=== PATIENT | male | born 1940 | race Caucasian/White ===

== ENCOUNTER → 2019-06-14 10:47 | Outpatient (BNVA) | payer MEDICARE, MEDICAID, SELFPAY | PROVIDERS: Family Provider Nurse Practitioner; PCP Nurse Practitioner; Visit Provider Nurse Practitioner | DX: I10 Essential (primary) hypertension (principal); E78.5 Hyperlipidemia, unspecified; E55.9 Vitamin D deficiency, unspecified; Z86.73 Personal history of transient ischemic attack (TIA), and cerebral infarction without residual deficits; K21.9 Gastro-esophageal reflux disease without esophagitis; J43.9 Emphysema, unspecified; R39.11 Hesitancy of micturition | CPT/HCPCS: 80053; 80061; 81003; 82306 ==

== ENCOUNTER → 2019-07-11 11:10 | Outpatient (BNVA) | payer MEDICARE, MEDICAID, SELFPAY | PROVIDERS: Family Provider Nurse Practitioner; PCP Nurse Practitioner; Visit Provider Nurse Practitioner | DX: E87.5 Hyperkalemia (principal) | CPT/HCPCS: 80053 ==

== ENCOUNTER → 2020-03-05 10:22 | Outpatient (BNVA) | payer MEDICARE, MEDICAID, SELFPAY | PROVIDERS: Family Provider Nurse Practitioner; PCP Nurse Practitioner; Visit Provider Nurse Practitioner | DX: M25.512 Pain in left shoulder (principal); I10 Essential (primary) hypertension; E78.2 Mixed hyperlipidemia; E55.9 Vitamin D deficiency, unspecified; J43.9 Emphysema, unspecified | CPT/HCPCS: 73030; 80053; 80061; 84443; 85025 ==

== ENCOUNTER → 2020-11-16 08:32 | Outpatient (BNVA) | payer MEDICARE, MEDICAID, SELFPAY | PROVIDERS: Family Provider Nurse Practitioner; PCP Nurse Practitioner; Visit Provider Nurse Practitioner | DX: I10 Essential (primary) hypertension (principal); J43.9 Emphysema, unspecified; Z86.73 Personal history of transient ischemic attack (TIA), and cerebral infarction without residual deficits; K21.9 Gastro-esophageal reflux disease without esophagitis; E78.2 Mixed hyperlipidemia; R39.11 Hesitancy of micturition; L25.9 Unspecified contact dermatitis, unspecified cause | CPT/HCPCS: 80053; 80061; 85025 ==

== ENCOUNTER → 2021-02-04 15:35 | Outpatient (BNVA) | payer MEDICARE, MEDICAID, SELFPAY | PROVIDERS: Family Provider Nurse Practitioner; PCP Nurse Practitioner; Visit Provider Nurse Practitioner | DX: J43.9 Emphysema, unspecified (principal); I10 Essential (primary) hypertension; K21.9 Gastro-esophageal reflux disease without esophagitis; E78.2 Mixed hyperlipidemia; R39.11 Hesitancy of micturition; K59.01 Slow transit constipation; Z86.73 Personal history of transient ischemic attack (TIA), and cerebral infarction without residual deficits | CPT/HCPCS: 74018 ==

== ENCOUNTER → 2021-05-16 16:12 | Outpatient (BNVA) | payer MEDICARE, MEDICAID, SELFPAY | PROVIDERS: Family Provider Nurse Practitioner; PCP Nurse Practitioner; Visit Provider Nurse Practitioner | DX: I10 Essential (primary) hypertension (principal); M54.50 Low back pain, unspecified; Z86.73 Personal history of transient ischemic attack (TIA), and cerebral infarction without residual deficits; K21.9 Gastro-esophageal reflux disease without esophagitis; J43.9 Emphysema, unspecified; K59.01 Slow transit constipation; E78.2 Mixed hyperlipidemia | CPT/HCPCS: 74018; 80053; 80061; 81000; 85025 ==

== ENCOUNTER → 2021-10-09 11:23 | Outpatient (BNVA) | payer MEDICARE, MEDICAID, SELFPAY | PROVIDERS: Family Provider Nurse Practitioner; PCP Nurse Practitioner; Visit Provider Nurse Practitioner | DX: E55.9 Vitamin D deficiency, unspecified (principal); I10 Essential (primary) hypertension | CPT/HCPCS: 80053; 80061; 82306; 82607; 84443 ==

== ENCOUNTER 2021-10-10 06:59 | Outpatient (CLI) | payer MEDICARE, MEDICAID, SELFPAY ==
--- NOTE | 2021-10-10 07:14 | XRR_ITS ---
PROCEDURE INFORMATION: Exam: XR Chest Exam date and time: 10/10/2021 7:27 AM Age: 80 years old Clinical indication: Pain and condition or disease; Lung condition and disease; Emphysema; Type not specified; Right-sided; Patient HX: Right side flank pain and chest wall pain, feels like a balloon is inflated in this area TECHNIQUE: Imaging protocol: XR of the chest. Views: 2 views. Total images: 2 COMPARISON: No relevant prior studies available. FINDINGS: Lungs: Unremarkable. No consolidation. Pleural spaces: Unremarkable. No pleural effusion. No pneumothorax. Heart/Mediastinum: A large hiatal hernia is present. Bones/joints: Unremarkable. XR/XR chest 2V* [id number] IMPRESSION: 1. A large hiatal hernia is present. 2. No acute cardiopulmonary process.
--- NOTE | 2021-10-11 08:30 | US_ITS ---
WS: [id number] Complete ABDOMINAL ULTRASOUND HISTORY: R10.9 - Unspecified abdominal pain COMPARISON: Renal ultrasound 01/12/2018 Liver: 16.9 cm in length. Liver is top normal size. No mass or bile duct dilatation. Normal portal ve in. Portal Vein: Normal hepatopetal flow with monophasic waveform. Gallbladder: Normally distended gallbladder with cholelithiasis. No wall thickening. Gallbladder wall thickness: 0.2 cm. Pancreas: Poorly visualized pancreas due to bowel gas and body habitus. CBD: 0.3 cm. Right kidney: 9.4 cm x 6.0 cm x 4.4 cm. No obstruction. Small cortical cyst upper pole measures 1.4 x 1.2 x 1.0 cm. Left kidney: 10.7 cm x 4.2 cm x 5.3 cm. Normal size kidney. There are several cysts within the kidne y. The largest in the superior pole measures 2.2 x 1.8 x 2.1 cm. Dense calcification noted in the low er pole cortex has been previously identified. Spleen: Normal size and echogenicity. Abdominal aorta and IVC are within normal limits. No ascites.
== END 2021-10-10 07:00 | disposition home or self-care (01) ==
LOC: RAD 07:00
PROVIDERS: Family Provider Nurse Practitioner; PCP Nurse Practitioner; Visit Provider Nurse Practitioner
DX: J43.9 Emphysema, unspecified (principal); K44.9 Diaphragmatic hernia without obstruction or gangrene
CPT/HCPCS: 71046

== ENCOUNTER 2021-10-11 08:06 | Outpatient (CLI) | payer MEDICARE, MEDICAID, SELFPAY ==
--- NOTE | 2021-10-11 09:22 | US_ITS ---
WS: [id number] Complete ABDOMINAL ULTRASOUND HISTORY: R10.9 - Unspecified abdominal pain COMPARISON: Renal ultrasound 01/12/2018 Liver: 16.9 cm in length. Liver is top normal size. No mass or bile duct dilatation. Normal portal ve in. Portal Vein: Normal hepatopetal flow with monophasic waveform. Gallbladder: Normally distended gallbladder with cholelithiasis. No wall thickening. Gallbladder wall thickness: 0.2 cm. Pancreas: Poorly visualized pancreas due to bowel gas and body habitus. CBD: 0.3 cm. Right kidney: 9.4 cm x 6.0 cm x 4.4 cm. No obstruction. Small cortical cyst upper pole measures 1.4 x 1.2 x 1.0 cm. Left kidney: 10.7 cm x 4.2 cm x 5.3 cm. Normal size kidney. There are several cysts within the kidne y. The largest in the superior pole measures 2.2 x 1.8 x 2.1 cm. Dense calcification noted in the low er pole cortex has been previously identified. Spleen: Normal size and echogenicity. Abdominal aorta and IVC are within normal limits. No ascites. US/US abdomen complete* [id number] IMPRESSION: 1. Cholelithiasis without acute cholecystitis. 2. Bilateral renal cysts. No obstruction or solid mass identified. 3. Mild atherosclerosis aorta.
== END 2021-10-11 08:07 | disposition home or self-care (01) ==
PROVIDERS: Family Provider Nurse Practitioner; PCP Nurse Practitioner; Visit Provider Nurse Practitioner
DX: R10.9 Unspecified abdominal pain (principal); K80.20 Calculus of gallbladder without cholecystitis without obstruction; N28.1 Cyst of kidney, acquired; I70.0 Atherosclerosis of aorta
CPT/HCPCS: 76700

== ENCOUNTER → 2022-01-21 14:14 | Outpatient (BNVA) | payer MEDICARE, MEDICAID, SELFPAY | PROVIDERS: Family Provider Nurse Practitioner; PCP Nurse Practitioner; Visit Provider Nurse Practitioner | DX: J43.9 Emphysema, unspecified (principal); R06.02 Shortness of breath | CPT/HCPCS: 71046; 81000; 85025 ==

== ENCOUNTER → 2022-04-15 11:57 | Outpatient (BNVA) | payer MEDICARE, MEDICAID, SELFPAY | PROVIDERS: Family Provider Nurse Practitioner; PCP Nurse Practitioner; Visit Provider Nurse Practitioner | DX: J43.9 Emphysema, unspecified (principal); I10 Essential (primary) hypertension; Z86.73 Personal history of transient ischemic attack (TIA), and cerebral infarction without residual deficits; K21.9 Gastro-esophageal reflux disease without esophagitis; E78.2 Mixed hyperlipidemia; K59.01 Slow transit constipation; E55.9 Vitamin D deficiency, unspecified; E78.5 Hyperlipidemia, unspecified | CPT/HCPCS: 80053; 82306 ==

== ENCOUNTER → 2022-09-30 11:27 | Outpatient (BNVA) | payer MEDICARE, MEDICAID, SELFPAY | PROVIDERS: Family Provider Nurse Practitioner; PCP Nurse Practitioner; Visit Provider Nurse Practitioner | DX: E78.5 Hyperlipidemia, unspecified (principal); I10 Essential (primary) hypertension; J43.9 Emphysema, unspecified; Z86.73 Personal history of transient ischemic attack (TIA), and cerebral infarction without residual deficits; K21.9 Gastro-esophageal reflux disease without esophagitis; E78.2 Mixed hyperlipidemia | CPT/HCPCS: 80053; 80061; 85025 ==

== ENCOUNTER 2023-02-15 13:48 | Observation (INO) | payer MEDICARE, MEDICAID, SELFPAY ==
[2023-02-15 14:05] VITALS: BP 147/81; PULSE 62; TEMP 36.6; O2SAT 96; BMI 23.7
--- NOTE | 2023-02-15 14:18 | XRR_ITS ---
PROCEDURE INFORMATION: Exam: XR Left Finger(s) Exam date and time: 02/15/2023 2:55 PM Age: 82 years old Clinical indication: Injury or trauma; Other: Cat bite; Index finger; Left; Additional info: Cat bite index finger TECHNIQUE: Imaging protocol: Radiologic exam of the left fingers. Views: Minimum 2 views. COMPARISON: No relevant prior studies available. FINDINGS: Bones/joints: Alignment is normal. No acute fracture. 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 Soft tissues: No soft tissue gas. No radiodense foreign body. There is diffuse swelling of the 2nd finger. XR/XR finger LT min 2V [id number] IMPRESSION: 1. No fracture, soft tissue gas or foreign body. 2. 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
--- NOTE | 2023-02-15 14:20 | ED_ITS ---
HPI - Animal Bite General: Chief Complaint: Animal Bite Stated Complaint: cat bite swollen/red left hand Time Seen by Provider: 02/15/23 14:11 History of Present Illness: 82-year-old male presents emergency department complaining of cat bite to the left index finger 3 days ago. It has progressively gotten swollen but has gotten much worse over the last 24 hours. Swelling is going down into his hand and is spreading towards the first and third digits as well. Patient reports he had an area that appeared to be coming to ahead on the dorsal aspect of his index finger. He squeezed it slightly and pus came flowing out. This reduced the size of the swelling to some degree. He cannot flex his finger without significant pain. He denies any systemic symptoms. He reports his tetanus is up-to-date in the last 5 years. He is right-handed Review of Systems General: Reports: 10 or more systems reviewed and unremarkable except in HPI and below Narrative: Patient endorses pain, swelling, redness of the left hand and first 3 fingers. He has no fever, chills, sweats nor any pain extending proximally up the left arm. No other symptoms reported PFSH ED PFSH: Medical History (Updated 02/15/23 @ 14:31 by Braxton Mahan MD) Enrolled in chronic care management GERD (gastroesophageal reflux disease) HTN (hypertension) Hyperlipidemia, unspecified Osteoarthritis of spine Surgical History History of ankle surgery Hx of hernia repair right inguinal Family History Father Cancer Other Hypertension Social History Smoking and tobacco status: former smoker Quit status (tobacco): has quit using tobacco Year quit tobacco: 1994 Second hand smoke exposure: No Smoking risk assessment/counseling performed?: No Alcohol intake: never Desire information about alcohol rehabilitation?: No Counseling given: No Substance/Drug Use: never Desire information about substance/drug rehabilitation?: No Counseling given: No Adopted: No Caregiver/support person: No Lives independently: Yes Household members: spouse and family Housing: House Marital status: service: No Current occupational status: retired Pets and animals: Yes Do you think of yourself as: Straight/Heterosexual Current gender identity: Male Physical Exam Const: COMMON NORMALS: no limitations, alert and well nourished EXAM LIMITATIONS: no altered mental status HENMT: COMMON NORMALS: normocephalic, atraumatic and external ears normal HEAD & SCALP: normocephalic and atraumatic EXTERNAL EAR: Yes external ears normal MOUTH: no muffled voice Eye: COMMON NORMALS: EOMs intact bilaterally, conjunctivae normal and no scleral icterus CONJUNCTIVA: Yes conjunctivae normal Neck/C-Spine: COMMON NORMALS: no JVD GENERAL: Yes normal visual inspection and Yes trachea midline Resp: COMMON NORMALS: normal respiratory effort, No use of accessory muscles and clear to auscultation bilaterally AUSCULTATION: clear to auscultation bilaterally Cardio: COMMON NORMALS: no JVD, regular rate and regular rhythm RATE: regular rate RHYTHM: regular rhythm GI: COMMON NORMALS: Soft to palpation and non-tender PALPATION: Yes Soft to palpation and No Guarding due to palpation present (GI) Extremity: NARRATIVE EXTREMITY EXAM: Left upper extremity. There is swelling, redness, warmth and tenderness starting around the base of the left thumb and extending on the dorsal and palmar aspect to the second and third digits. The second digit is the finger that was bitten. There are tiny puncture bee. There is an area where the patient states he squeezed pus out that has some honey colored crust. There is extensive fusiform swelling of the left index finger. He has pain with passive or active flexion or extension. There are subcutaneous pale pockets that I can see through the epidermis. No overt crepitus. Patient prefers to hold the finger in slight flexion. There is tenderness along the flexor and extensor tendons. Neuro: COMMON NORMALS: moves all extremities, no focal motor deficits and no sensory deficits noted SENSORIUM/ORIENTATION: Yes alert SPEECH: speech normal Course Vital Signs: Vital signs: Vital Signs Temperature 97.8 F 02/15/23 14:05 Pulse Rate 62 02/15/23 14:05 Blood Pressure 147/81 02/15/23 14:05 Pulse Oximetry 96 02/15/23 14:05 Oxygen Delivery Me thod Room Air 02/15/23 14:05 MDM - Animal Bite Medical Decision Making Patient presents with cat bite to left index finger. He has positive [place] signs. I have ordered labs and IV antibiotics as well as an x-ray and inflammatory markers. I have asked to speak with Dr. Quiñonez, orthopedic surgery. [id number] Dr Quiñonez called back and we discussed the case. Unfortunately, patient ate just prior to arriving to ER. Plan will be admit to hospitalist and Dr Quiñonez will add on for planned surgical washout tomorrow. He's recommended volar splint, strict elevation, IV abx, npo at midnight. Lab Data 02/15/23 14:31 02/15/23 14:31 Laboratory Results WBC 6.49 10^3/uL (3.29-11.43) 02/15/23 14: RBC 4.89 10^6/uL (3.85-5.65) 02/15/23 14: Hgb 13.50 g/dL (11.27-16.99) 02/15/23 14:31 Hct 43.3 % (37-53) 02/15/23 14:31 MCV 88.5 fl (82-101) 02/15/23 14:31 MCH 27.6 pg (27-33) 02/15/23 14:31 MCHC 31.2 g/dL (30-55) 02/15/23 14:31 RDW 14.0 % (12.1-15.1) 02/15/23 14:31 Plt Count 252 10^3/cmm (157-399) 02/15/23 14:31 MPV 10.1 fL (7.4-10.4) 02/15/23 14:31 Neut % (Auto) 66.9 % 02/15/23 14:31 Lymph % (Auto) 20.0 % 02/15/23 14:31 [place] % (Auto) 12.0 % 02/15/23 14:31 Eos % (Auto) 0.3 % 02/15/23 14: Baso % (Auto) 0.6 % 02/15/23 14: Neut # (Auto) 4.34 10^3/uL (1.8-7.7) 02/15/23 14:31 Lymph # (Auto) 1.3 10^3/uL (0.8-4.8) 02/15/23 14:31 [place] # (Auto) 0.8 10^3/uL (0.2-0.9) 02/15/23 14:31 Eos # (Auto) 0.0 10^3/uL (0.0-0.8) 02/15/23 14:31 Baso # (Auto) 0.0 10^3/uL (0.0-0.1) 02/15/23 14:31 Nucleated RBC % (auto) 0 % 02/15/23 14:31 Nucleated RBCs # 0.0 /100WBC 02/15/23 14:31 ESR 37 mm/hr (0-10) H 02/15/23 14:31 Sodium 139 mmol/L (136-145) 02/15/23 14:31 Potassium 4.2 mmol/L (3.5-5.1) 02/15/23 14:31 Chloride 104 mmol/L (98-107) 02/15/23 14:31 Carbon Dioxide 26 mmol/L (22-29) 02/15/23 14:31 Anion Gap 13.2 (5-19) 02/15/23 14:31 BUN 14 mg/dL (8-23) 02/15/23 14:31 Creatinine 0.8 mg/dL (0.7-1.2) 02/15/23 14:31 GFR Calculation Not Reportable 02/15/23 14:31 Glucose 110 mg/dL (65-115) 02/15/23 14:31 Calculated Osmolality 289 mOsm/kg (285-295) 02/15/23 14:31 Calcium 9.9 mg/dL (8.5-10.5) 02/15/23 14:31 Total Bilirubin 0.8 mg/dL (0.15-1.2) 02/15/23 14:31 AST 16 U/L (0-40) 02/15/23 14:31 ALT 12 U/L (0-41) 02/15/23 14:31 Alkaline Phosphatase 79 U/L (40-130) 02/15/23 14:31 C-Reactive Protein 42.6 mg/L (0.0-4.9) H 02/15/23 14:31 Total Protein 6.9 g/dL (6.6-8.7) 02/15/23 14:31 Albumin 3.8 g/dL (3.5-5.2) 02/15/23 14:31 Globulin 3.1 g/dL (1.3-4.6) 02/15/23 14:31 Discharge Plan Discharge Patient Disposition: Admitted As Inpatient Clinical Impression: Tenosynovitis of finger Condition: Stable Coding Level of Care Code ED Caddy/Caddie Supervisor for Fadi Gilbert
[2023-02-15 14:41] LABS: Basophils % 0.6 %; Eosinophils % 0.3 %; Hematocrit 43.3 % (37-53); Lymphocytes # 1.3 10^3/uL (0.8-4.8); Mean Corpuscular HGB Conc 31.2 g/dL (30-55); Mean Corpuscular Hemoglobin 27.6 pg (27-33); Mean Corpuscular Volume 88.5 fl (82-101); Mean Platelet Volume 10.1 fL (7.4-10.4); Monocytes # 0.8 10^3/uL (0.2-0.9); Neutrophils # 4.34 10^3/uL (1.8-7.7); Neutrophils % 66.9 %; Nucleated Red Blood Cells % 0 %; Platelet Count 252 10^3/cmm (157-399); Red Blood Count 4.89 10^6/uL (3.85-5.65); White Blood Count 6.49 10^3/uL (3.29-11.43)
[2023-02-15 14:56] LABS: Erythrocyte Sedimentation Rate 37 mm/hr (0-10)
[2023-02-15] MEDS: vancomycin 1,250 MG/250 ML PIGGYBACK 250 MG IV (14:56)
[2023-02-15 15:11] LABS: Alanine Aminotransferase 12 U/L (0-41); Albumin Level 3.8 g/dL (3.5-5.2); Alkaline Phosphatase 79 U/L (40-130); Anion Gap 13.2 (5-19); Aspartate Amino Transferase 16 U/L (0-40); Blood Urea Nitrogen 14 mg/dL (8-23); C Reactive Protein 42.6 mg/L (0.0-4.9); Calcium 9.9 mg/dL (8.5-10.5); Carbon Dioxide 26 mmol/L (22-29); Chloride 104 mmol/L (98-107); Creatinine Clr Calc Pharmacy 68.6217; Globulin 3.1 g/dL (1.3-4.6); Glucose 110 mg/dL (65-115); Osmolality Calculated 289 mOsm/kg (285-295); Potassium 4.2 mmol/L (3.5-5.1); Sodium 139 mmol/L (136-145); Total Bilirubin 0.8 mg/dL (0.15-1.2); Total Protein 6.9 g/dL (6.6-8.7)
--- NOTE | 2023-02-15 16:28 | PC.NURSE ---
inserted by September, RN
[2023-02-15 17:03] VITALS: BP 144/70; PULSE 65; RESP 17; TEMP 36.7; O2SAT 93
--- NOTE | 2023-02-15 17:05 | PM.HP ---
Providers/Chief Complaint Admitting Physician: Alpa Contreras MD Primary Care Provider: Madalyn Padilla, OPERATIONS SUPPORT MANAGER-C Chief Complaint: cat bite swollen/red left hand History of Present Illness Antonio Ivan is a 82 year old male with PMH HTN, HLD, GERD who presented with 2 days of worsening swelling, redness and pain involving his left index finger after one of his pet kittens bit him. Over the past 2 days he has tried soaking hg his hand in warm tap water. Today he was able to drain pus by squeezing his finger and presented to the ER. He was unable to flex his finger today. Review of Systems General: Reports: 10 or more systems reviewed and unremarkable except in HPI and below Const: Denies: fever(s), chills or body aches Eyes: Denies: change in vision, blurry vision or photophobia ENMT: Reports: hoarseness; Denies: throat pain, enlarged tonsils, odynophagia or nasal congestion Card: Denies: chest pain, palpitations, irregular heart rhythm, edema, swelling of feet/ankles, lightheadedness, pre-syncope, dyspnea on exertion or orthopnea Resp: Denies: dyspnea, productive cough, non-productive cough, wheezing, stridor, pain on inspiration, change in phlegm color, hemoptysis or chest congestion GI: Denies: abdominal pain, nausea, vomiting, hematemesis, coffee ground emesis, dysphagia, heartburn, diarrhea, constipation, GI cramping, change in stool character, hematochezia or melena : Denies: flank pain, dysuria, urinary frequency, urinary urgency, urinary hesitancy or hematuria Musc: Denies: neck pain, back pain, extremity pain, joint swelling, joint warmth or deformity Neuro: Denies: headache(s), numbness in extremities, weakness in extremities, sensory changes, difficulty walking, frequent falls, dizziness, vertigo, behavioral changes, Slurred speech present or seizure-like activity Psych: Denies: anxiety, depression, suicidal ideation or homicidal ideation Endo: Denies: polyuria, polydipsia, tired all the time, cold intolerance or hot flashes Lior/Lymph: Denies: easy bruising or easy bleeding Medications/Allergies Home Medications Medication Instructions Recorded Confirmed Last Taken Type oxygen concentrator #1 ea 11/07/21 02/15/23 Unknown Rx albuterol sulfate 90 mcg/actuation 2 puff inhalation Q6H PRN 09/30/22 02/15/23 Unknown Rx aerosol inhaler (Ventolin HFA) shortness of breath or wheezing #8.5 grams amlodipine 5 mg tablet 5 mg PO DAILY #30 tabs 09/30/22 02/15/23 02/15/23 Rx clopidogrel 75 mg tablet (Plavix) 75 mg PO DAILY #30 tabs 09/30/22 02/15/23 02/15/23 Rx famotidine 20 mg tablet 20 mg PO BID 30 days #60 tabs 09/30/22 02/15/23 02/15/23 Rx fluticasone fur. 100 mcg-umeclid 1 inh inhalation Q24H #60 ea 09/30/22 02/15/23 02/15/23 Rx 62.5 mcg-vilant 25 mcg inhalat.powder (Trelegy Ellipta) lovastatin 20 mg tablet 20 mg PO DAILY #30 tabs 09/30/22 02/15/23 02/15/23 Rx metoprolol succinate 50 mg 50 mg PO DAILY #30 tabs 09/30/22 02/15/23 02/15/23 Rx tablet,extended release 24 hr Allergies Allergy/AdvReac Type Severity Reaction Status Date / Time No Known Allergies Allergy Verified 02/15/23 14:12 PFSH Acute PFSH: Medical History Enrolled in chronic care management GERD (gastroesophageal reflux disease) HTN (hypertension) Hyperlipidemia, unspecified Osteoarthritis of spine Surgical History History of ankle surgery Hx of hernia repair right inguinal Family History Father Cancer Other Hypertension Social History Smoking and tobacco status: former smoker Quit status (tobacco): has quit using tobacco Year quit tobacco: 1994 Second hand smoke exposure: No Smoking risk assessment/counseling performed?: No Alcohol intake: never Desire information about alcohol rehabilitation?: No Counseling given: No Substance/Drug Use: never Desire information about substance/drug rehabilitation?: No Counseling given: No Adopted: No Caregiver/support person: No Lives independently: Yes Household members: spouse and family Housing: House Marital status: service: No Current occupational status: retired Pets and animals: Yes Do you think of yourself as: Straight/Heterosexual Current gender identity: Male Vitals/I&O/Wt Last Vital Signs Temp 97.8 F 02/15/23 14:05 Pulse 62 02/15/23 14:05 BP 147/81 02/15/23 14:05 Pulse Ox 96 02/15/23 14:05 O2 Del Method Room Air 02/15/23 16:37 02/15/23 02/15/23 02/15/23 06:59 14:59 22:59 Intake Total 250 / 250 Balance 250 / 250 Weight last 48 hrs Weight 70.76 kg Physical Exam Narrative: General: No acute distress, AO x3 HEENT: PERRLA, pupils bilaterally equal and reactive, pallors not present Chest: Normal vesicular breath sounds, no added sounds, equal good air entry bilaterally CVS: S1-S2 regular, no murmurs, no tachycardia, no gallops, no rubs Abdomen: Soft, nontender, no organomegaly, bowel sounds present Neuro: No focal deficits, no facial deformity, AO x3, power 5/5 in all limbs Extremities: left index finger with bite bee, swelling , his hand is currently splinted, entire splint not opened for exam Data 02/15/23 14:31 02/15/23 14:31 Other data: XR/XR finger LT min 2V [id number] IMPRESSION: 1. ? No fracture, soft tissue gas or foreign body. 2. ? 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 A&P Assessment and plan (1) Tenosynovitis of finger: Tenosynovitis of left index finger From cat bite 3 days ago start piperacillin-tazobactam empirically orthopedics consulted from ER possible debridement in OR tomorrow Npo after mdinight tetanus boosters up to date Patient's pet cat available for observation over next 10 days Plan Continue home medications including amlodipine, pepcid, metoprolol Attestations Medical Necessity Statement*: > 2 midnight admission anticipated for iv abx, planned OR debridement Coding Level of Care Code Acute Code for [facility] Fwd Diagnoses Tenosynovitis of finger M65.9
[2023-02-15] MEDS: piperacillin-tazobactam 3.375 GM in sodium chloride 0.9% (plus) 50 ML IV (17:49)
[2023-02-15 20:21] VITALS: BP 140/86; PULSE 64; RESP 17; TEMP 36.9; O2SAT 96
[2023-02-15] MEDS: ketorolac 30 mg/mL INJ 15 MG IVP (21:41)
--- NOTE | 2023-02-15 22:14 | P.CONIM_ITS ---
Patient seen and examined with PA-C agree with PAs assessment and plan. Patient has classic findings of flexor tenosynovitis. Patient has a left index finger cat bite roughly 4 days ago which progressively worsened he has elevated CRP and ESR. He has a normal white count. He has been on empiric antibiotics as well as elevation and Toradol as well as in a volar splint. This was all taken down he was seen and examined his examination is classic for [place] signs. He has severe tenderness over the flexor tendon sheath pain with passive range of motion fusiform swelling as well as erythema up and down the finger. He will be n.p.o. at midnight with I suspect plan for left index finger irrigation and debridement given his history and his lack of response to conservative treatm ent. We will reassess patient tomorrow but plan for likely left index finger irrigation and debridement. Patient and family understand agree with current plan. All questions answered. Isidro Quiñonez DO Providers/Reason For Consult Consulting Physician/Specialty*: Dr. Quiñonez Reason for Consult*: Tenosynovitis of finger due to cat bite Requesting Physician: ED?Dr. Mahan Attending Physician: Alpa Contreras MD Primary Care Provider: ZEINAB Saucedo History of Present Illness History of Present Illness Antonio Ivan is a 82 year old male that was admitted for a infected cat bite to left index finger. Patient said he sustained the cat bite approximately 4 days ago. Left index finger symptoms have gotten worse over the past couple days. He has had increased swelling, redness, pain and has been unable to move index finger. Denies any fevers. Review of Systems General: Reports: 10 or more systems reviewed and unremarkable except in HPI and below Const: Denies: fever(s) Musc: Reports: extremity pain (Left index finger), extremity swelling (Left index finger) and limited range of motion (Left index finger) Medications/Allergies Home Medications Medication Instructions Recorded Confirmed Last Taken Type oxygen concentrator #1 ea 11/07/21 02/15/23 Unknown Rx albuterol sulfate 90 mcg/actuation 2 puff inhalation Q6H PRN 09/30/22 02/15/23 Unknown Rx aerosol inhaler (Ventolin HFA) shortness of breath or wheezing #8.5 grams amlodipine 5 mg tablet 5 mg PO DAILY #30 tabs 09/30/22 02/15/23 02/15/23 Rx clopidogrel 75 mg tablet (Plavix) 75 mg PO DAILY #30 tabs 09/30/22 02/15/23 02/15/23 Rx famotidine 20 mg tablet 20 mg PO BID 30 days #60 tabs 09/30/22 02/15/23 02/15/23 Rx fluticasone fur. 100 mcg-umeclid 1 inh inhalation Q24H #60 ea 09/30/22 02/15/23 02/15/23 Rx 62.5 mcg-vilant 25 mcg inhalat.powder (Trelegy Ellipta) lovastatin 20 mg tablet 20 mg PO DAILY #30 tabs 09/30/22 02/15/23 02/15/23 Rx metoprolol succinate 50 mg 50 mg PO DAILY #30 tabs 09/30/22 02/15/23 02/15/23 Rx tablet,extended release 24 hr Allergies Allergy/AdvReac Type Severity Reaction Status Date / Time No Known Allergies Allergy Verified 02/15/23 14:12 Current Medications Generic Name Dose Route Start Last Admin Trade Name Freq PRN Reason Stop Dose Admin Piperacillin Sod/Tazobactam 50 mls @ 12.5 mls/hr 02/15/23 17:15 02/15/23 17:49 Sod 3.375 gm/ Sodium Chloride IV 12.5 mls/hr Q8H KIANA Administration Ketorolac Tromethamine 15 mg 02/15/23 20:45 02/15/23 21:41 Ketorolac 30 Mg/Ml Inj IVP 02/17/23 02:46 15 mg Q6H KIANA Administration PFSH Acute PFSH: Medical History (Updated 02/15/23 @ 14:31 by Braxton Mahan MD) Enrolled in chronic care management GERD (gastroesophageal reflux disease) HTN (hypertension) Hyperlipidemia, unspecified Osteoarthritis of spine Surgical History History of ankle surgery Hx of hernia repair right inguinal Family History Father Cancer Other Hypertension Social History Smoking and tobacco status: former smoker Quit status (tobacco): has quit using tobacco Year quit tobacco: 1994 Second hand smoke exposure: No Smoking risk assessment/counseling performed?: No Alcohol intake: never Desire information about alcohol rehabilitation?: No Counseling given: No Substance/Drug Use: never Desire information about substance/drug rehabilitation?: No Counseling given: No Adopted: No Caregiver/support person: No Lives independently: Yes Household members: spouse and family Housing: House Marital status: service: No Current occupational status: retired Pets and animals: Yes Do you think of yourself as: Straight/Heterosexual Current gender identity: Male Vitals/I&O/Wt Last Vital Signs Temp 98.4 F 02/15/23 20:21 Pulse 64 02/15/23 20:21 Resp 17 02/15/23 20:21 BP 140/86 02/15/23 20:21 Pulse Ox 96 02/15/23 20:21 O2 Del Method Room Air 02/15/23 20:21 02/15/23 02/15/23 02/15/23 06:59 14:59 22:59 Intake Total 730 / 730 Balance 730 / 730 Weight last 48 hrs Weight 156 lb Physical Exam Const: COMMON NORMALS: patient oriented x3 and alert Resp: COMMON NORMALS: normal respiratory effort EFFORT & INSPECTION: No respiratory distress Extremity: NARRATIVE EXTREMITY EXAM: Left hand?index finger-cat bite over volar region of finger. erythema, warmth and fusiform swelling of finger. Erythema tracking proximally into the palm and dorsal hand. Tenderness to palpation throughout finger. tenderness to flexor tendon sheath and A1 tonia. Severe limited range of motion. Pain with passive range of motion. Sensation intact. No tenderness over the thenar and hypothenar. no tenderness over carpal tunnel. Neuro: COMMON NORMALS: patient oriented x3 SENSORIUM/ORIENTATION: Yes alert Data 02/15/23 14:31 02/15/23 14:31 Micro: Microbiology 02/15/23 17:30 Blood Culture - Preliminary Blood SPECIMEN COLLECTED 02/15/23 17:25 Blood Culture - Preliminary Blood SPECIMEN COLLECTED Xray Ortho: Radiologist's impression: XR/XR finger LT min 2V [id number] IMPRESSION: 1. ? No fracture, soft tissue gas or foreign body. 2. ? 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 A&P Assessment and plan (1) Tenosynovitis of finger: Plan Plan: -Hospitalist on board for medical management -Labs and imaging reviewed WBC 6.49,CRP 42.6, esr-37 -Antibiotics per hospitalist -N.p.o. after midnight -Patient will be taken to the OR tomorrow for left index finger I&D. Coding Level of Care Code Acute Code for [facility] Fwd Diagnoses Tenosynovitis of finger M65.9
[2023-02-16 00:21] VITALS: BP 130/68; PULSE 58; RESP 12; TEMP 36.6; O2SAT 94
[2023-02-16] MEDS: piperacillin-tazobactam 3.375 GM in sodium chloride 0.9% (plus) 50 ML IV ×2 (02:06→08:08)
[2023-02-16] MEDS: ketorolac 30 mg/mL INJ 15 MG IVP ×2 (03:00→08:42)
[2023-02-16 03:58] VITALS: BP 116/72; PULSE 59; RESP 12; TEMP 36.8; O2SAT 93
[2023-02-16 05:40] LABS: Basophils % 0.7 %; Eosinophils # 0.1 10^3/uL (0.0-0.8); Eosinophils % 3.1 %; Hematocrit 40.7 % (37-53); Lymphocytes % 21.7 %; Mean Corpuscular HGB Conc 30.5 g/dL (30-55); Mean Corpuscular Hemoglobin 27.7 pg (27-33); Mean Corpuscular Volume 90.8 fl (82-101); Mean Platelet Volume 9.9 fL (7.4-10.4); Monocytes # 0.8 10^3/uL (0.2-0.9); Monocytes % 17.4 %; Neutrophils # 2.54 10^3/uL (1.8-7.7); Neutrophils % 56.9 %; Nucleated Red Blood Cells % 0 %; Platelet Count 211 10^3/cmm (157-399); Red Blood Count 4.48 10^6/uL (3.85-5.65); Red Cell Distribution Width 14.1 % (12.1-15.1); White Blood Count 4.47 10^3/uL (3.29-11.43)
[2023-02-16 05:57] LABS: Alanine Aminotransferase 9 U/L (0-41); Albumin Level 3.3 g/dL (3.5-5.2); Alkaline Phosphatase 61 U/L (40-130); Anion Gap 10.1 (5-19); Aspartate Amino Transferase 14 U/L (0-40); Blood Urea Nitrogen 15 mg/dL (8-23); Calcium 9.4 mg/dL (8.5-10.5); Carbon Dioxide 26 mmol/L (22-29); Chloride 108 mmol/L (98-107); Globulin 2.7 g/dL (1.3-4.6); Glucose 89 mg/dL (65-115); Osmolality Calculated 290 mOsm/kg (285-295); Potassium 4.1 mmol/L (3.5-5.1); Sodium 140 mmol/L (136-145); Total Bilirubin 0.6 mg/dL (0.15-1.2)
[2023-02-16 07:51] VITALS: BP 136/82; PULSE 55; RESP 16; TEMP 36.8; O2SAT 93
[2023-02-16] MEDS: atorvastatin 40 mg Tablet 20 MG PO (08:08)
--- NOTE | 2023-02-16 11:43 | PC.NURSE ---
Patient told this nurse that he was not having his surgery today and that he would be going home one way or another. This nurse educated patient on possibility of worsening infection and possibility of his insurance not covering his hospital stay since he requested to leave AMA. This nurse notified Dr. Suero and Dr. Quiñonez. This nurse was instructed by the doctors to encourage him to stay. This nurse educated the patient to let his IV antibiotic finish infusing before he left. Patient agreed. Patients antibiotic finished infusing and patient became agitated told this nurse take this thing out or I will because I'm leaving . This nurse tried to calm the patient. Calming unsuccessful. Patient then began to yell at this nurse saying I will box my way out of here if I have to . This nurse told the patient that I would get an AMA form for him. Spoke with Dr. Quiñonez while in surgery and he states that if patient chooses to leave AMA, he will be forfeiting the availability to have his procedure at [facility] due to Dr. 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 This was explained to the patient in detail.
--- NOTE | 2023-02-16 14:19 | P.DS_ITS ---
Discharge Providers Date of Admission: 02/15/23 15:35 Date of Discharge: February 16, 2023 Attending Provider at Admission: Alpa Contreras MD Attending Provider at Discharge: Jesus Manuel Suero MD Primary Care Provider: ZEINAB Saucedo Diagnoses at Discharge Discharge Diagnosis (1) Tenosynovitis of finger: Status: Acute Reason for Visit Reason for Visit: cat bite swollen/red left hand Hospital Course Hospital Course Antonio Ivan is a 82 year old male with PMH HTN, HLD, GERD who presented with 2 days of worsening swelling, redness and pain involving his left index finger after one of his pet kittens bit him. Over the past 2 days he has tried soaking hg his hand in warm tap water. Today he was able to drain pus by squeezing his finger and presented to the ER. He was unable to flex his finger today. This is a 82-year-old male, who presents to [facility] for kitten bite of left index finger, associated swelling, with concerns for tenosynovitis of finger, orthopedic service was consulted who recommended surgical interventi on, patient received IV antibiotics for 24 hours, remained afebrile, overall swelling and erythema had improved, however the morning of 02/16/2023, patient was adamant about going home, would not wait for surgery, discussed morbidity and mortality associated with deep tissue infection, joint space involvement, sepsis, septic shock, losing his finger, he voiced understanding, all questions answered, however did not want to wait any longer than noon for his surgery, patient signed out AMA in the afternoon, as a surgery was a bit delayed. I will let him leave AMA on Augmentin and doxycycline, continue dressing changes, keep area clean and dry, if he were to have any fevers, chills, worsening swelling to go to the emergency room. Physical Exam Const: COMMON NORMALS: no acute distress and patient oriented x3 Resp: COMMON NORMALS: normal respiratory effort, No retractions, No use of accessory muscles and clear to auscultation bilaterally AUSCULTATION: clear to auscultation bilaterally Cardio: COMMON NORMALS: regular rate, regular rhythm, S1 normal heart sound present and S2 normal heart sound present RATE: regular rate RHYTHM: regular rhythm HEART SOUNDS: S1 normal heart sound present and S2 normal heart sound present GI: COMMON NORMALS: Normal to inspection, nondistended, normoactive bowel sounds present and non-tender Extremity: COMMON NORMALS: no pedal edema NARRATIVE EXTREMITY EXAM: Left index finger, erythema, swelling, at DIP and PIP joint, minimal Neuro: COMMON NORMALS: patient oriented x3 Psych: COMMON NORMALS: mental status grossly normal Discharge Data Studies Completed and Pending Completed Studies During Hospitalization Category Date Time Status XR finger LT min 2V 93030 Stat Exams 02/15/23 14:18 Completed Pending at discharge Category Date Time Status Blood Culture Stat Lab 02/15/23 17:30 Results Radiology Impressions Finger X-Ray 02/15/23 14:18 IMPRESSION: 1. No fracture, soft tissue gas or foreign body. 2. 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 Laboratory Results WBC 4.47 10^3/uL (3.29-11.43) 02/16/23 04:59 RBC 4.48 10^6/uL (3.85-5.65) 02/16/23 04:59 Hgb 12.40 g/dL (11.27-16.99) 02/16/23 04:59 Hct 40.7 % (37-53) 02/16/23 04:59 MCV 90.8 fl (82-101) 02/16/23 04:59 MCH 27.7 pg (27-33) 02/16/23 04:59 MCHC 30.5 g/dL (30-55) 02/16/23 04:59 RDW 14.1 % (12.1-15.1) 02/16/23 04:59 Plt Count 211 10^3/cmm (157-399) 02/16/23 04:59 MPV 9.9 fL (7.4-10.4) 02/16/23 04:59 Neut % (Auto) 56.9 % 02/16/23 04:59 Lymph % (Auto) 21.7 % 02/16/23 04:59 Sully % (Auto) 17.4 % 02/16/23 04:59 Eos % (Auto) 3.1 % 02/16/23 04:59 Baso % (Auto) 0.7 % 02/16/23 04:59 Neut # (Auto) 2.54 10^3/uL (1.8-7.7) 02/16/23 04:59 Lymph # (Auto) 1.0 10^3/uL (0.8-4.8) 02/16/23 04:59 Sully # (Auto) 0.8 10^3/uL (0.2-0.9) 02/16/23 04:59 Eos # (Auto) 0.1 10^3/uL (0.0-0.8) 02/16/23 04:59 Baso # (Auto) 0.0 10^3/uL (0.0-0.1) 02/16/23 04:59 Nucleated RBC % (auto) 0 % 02/16/23 04:59 Nucleated RBCs # 0.0 /100WBC 02/16/23 04:59 ESR 37 mm/hr (0-10) H 02/15/23 14:31 Sodium 140 mmol/L (136-145) 02/16/23 04:59 Potassium 4.1 mmol/L (3.5-5.1) 02/16/23 04:59 Chloride 108 mmol/L (98-107) H 02/16/23 04:59 Carbon Dioxide 26 mmol/L (22-29) 02/16/23 04:59 Anion Gap 10.1 (5-19) 02/16/23 04:59 BUN 15 mg/dL (8-23) 02/16/23 04:59 Creatinine 1.0 mg/dL (0.7-1.2) 02/16/23 04:59 GFR Calculation Not Reportable 02/16/23 04:59 Glucose 89 mg/dL (65-115) 02/16/23 04:59 Calculated Osmolality 290 mOsm/kg (285-295) 02/16/23 04:59 Calcium 9.4 mg/dL (8.5-10.5) 02/16/23 04:59 Total Bilirubin 0.6 mg/dL (0.15-1.2) 02/16/23 04:59 AST 14 U/L (0-40) 02/16/23 04:59 ALT 9 U/L (0-41) 02/16/23 04:59 Alkaline Phosphatase 61 U/L (40-130) 02/16/23 04:59 C-Reactive Protein 42.6 mg/L (0.0-4.9) H 02/15/23 14:31 Total Protein 6.0 g/dL (6.6-8.7) L 02/16/23 04:59 Albumin 3.3 g/dL (3.5-5.2) L 02/16/23 04:59 Globulin 2.7 g/dL (1.3-4.6) 02/16/23 04:59 Vitals Last Vital Signs Temp 98.3 F 02/16/23 07:51 Pulse 55 L 02/16/23 07:51 Resp 16 02/16/23 07:51 BP 136/82 02/16/23 07:51 Pulse Ox 93 02/16/23 07:51 O2 Del Method Room Air 02/16/23 07:51 Discharge Plan Discharge Patient Disposition: Left Against Medical Advice Condition: Stable Prescriptions: New amoxicillin-pot clavulanate 875-125 mg tablet 1 tab PO BID 7 Days Qty: 14 0RF doxycycline hyclate 100 mg tablet 100 mg PO BID 7 Days Qty: 14 0RF Continued albuterol sulfate [Ventolin HFA] 90 mcg/actuation HFA aerosol inhaler 2 puff inhalation Q6H PRN (Reason: shortness of breath or wheezing) Qty: 8.5 5RF amlodipine 5 mg tablet 5 mg PO DAILY Qty: 30 5RF clopidogrel [Plavix] 75 mg tablet 75 mg PO DAILY Qty: 30 5RF famotidine 20 mg tablet 20 mg PO BID 30 Days Qty: 60 5RF Trelegy Ellipta 100-62.5-25 mcg blister with device 1 inh inhalation Q24H Qty: 60 5RF lovastatin 20 mg tablet 20 mg PO DAILY Qty: 30 5RF metoprolol succinate 50 mg tablet extended release 24 hr 50 mg PO DAILY Qty: 30 5RF (DME) oxygen concentrator See Rx Instructions .Route .MEDSUPPLY Qty: 1 0RF Rx Instructions: As directed oxygen concentrator 2 liters n/c at sleep 99 months Referrals: Madalyn Padlila FNP-C [Primary Care Provider] - Discharge Attestations Time Spent in Discharge Care*: greater than 30 min Quality Metrics Clinical Quality Measures [ No reported AMI, CVA or VTE this stay] Coding Level of Care Code 65078 Diagnoses Tenosynovitis of finger M65.9
[2023-02-16 15:55] VITALS: BP 136/82; PULSE 55; RESP 16; TEMP 36.8; O2SAT 93
== END 2023-02-16 12:00 | disposition left against medical advice (07) | DRG 558 ==
LOC: ER 14:54 → MEDSURG 16:27
PROVIDERS: Admitting Provider Student in an Organized Health Care Education/Training Program; Emergency Provider Emergency Medicine; PCP Nurse Practitioner; Visit Provider Family Medicine
DX: M65.9 Synovitis and tenosynovitis, unspecified (principal); Z53.29 Procedure and treatment not carried out because of patient's decision for other reasons; I10 Essential (primary) hypertension; E78.5 Hyperlipidemia, unspecified; K21.9 Gastro-esophageal reflux disease without esophagitis; S61.251A Open bite of left index finger without damage to nail, initial encounter; W55.01XA Bitten by cat, initial encounter; Z79.51 Long term (current) use of inhaled steroids; Z79.02 Long term (current) use of antithrombotics/antiplatelets; M47.819 Spondylosis without myelopathy or radiculopathy, site unspecified; Z87.891 Personal history of nicotine dependence
CPT/HCPCS: 36415; 73140; 80053; 85025; 85651; 86140; 87040; 96365; 96367; 99285; G0378; J1885; J2543; J3370

== ENCOUNTER → 2023-09-03 08:57 | Outpatient (BNVA) | payer MEDICARE, MEDICAID, SELFPAY | PROVIDERS: PCP Nurse Practitioner; Visit Provider Nurse Practitioner | DX: Z78.9 Other specified health status (principal); I10 Essential (primary) hypertension; E78.2 Mixed hyperlipidemia; J43.9 Emphysema, unspecified; Z86.73 Personal history of transient ischemic attack (TIA), and cerebral infarction without residual deficits; K21.9 Gastro-esophageal reflux disease without esophagitis | CPT/HCPCS: 80053; 80061 ==

== ENCOUNTER → 2024-03-01 14:40 | Outpatient (BNVA) | payer MEDICARE, MEDICAID, SELFPAY | PROVIDERS: PCP Nurse Practitioner; Visit Provider Nurse Practitioner | DX: J43.9 Emphysema, unspecified (principal); E55.9 Vitamin D deficiency, unspecified; I10 Essential (primary) hypertension; E78.2 Mixed hyperlipidemia; I51.7 Cardiomegaly; M47.899 Other spondylosis, site unspecified; Q25.46 Tortuous aortic arch | CPT/HCPCS: 71046; 80053; 80061; 82306; 82607; 84443; 85025 ==

== ENCOUNTER → 2024-08-08 10:20 | Outpatient (BNVA) | payer MEDICARE, MEDICAID, SELFPAY | PROVIDERS: PCP Nurse Practitioner; Visit Provider Nurse Practitioner | DX: I10 Essential (primary) hypertension (principal); E78.2 Mixed hyperlipidemia; E55.9 Vitamin D deficiency, unspecified | CPT/HCPCS: 80053; 80061; 82306 ==

== ENCOUNTER → 2024-11-17 11:29 | Outpatient (BNVA) | payer MEDICARE, MEDICAID, SELFPAY | PROVIDERS: PCP Nurse Practitioner; Visit Provider Nurse Practitioner | DX: I10 Essential (primary) hypertension (principal) | CPT/HCPCS: 80053 ==

== ENCOUNTER 2025-01-16 10:18 | Outpatient (CLI) | payer MEDICARE, MEDICAID, SELFPAY ==
--- NOTE | 2025-01-16 10:26 | CT_ITS ---
WS: [id number] CT ABDOMEN AND PELVIS WITH CONTRAST HISTORY: M54.9 - Dorsalgia, unspecified TECHNIQUE: Imaging performed of the abdomen and pelvis with IV contrast. Single phase imaging of the abdomen. Coronal and sagittal reformats are submitted. All CT scans at [facility] use at least one of these dose optimization techniques: automated exposure control; mA and/or kV adjustment per patient size (includes targeted exams where dose is matched to clinical indication); or iterative reconstruction. IV CONTRAST: Omnipaque 350; 100 mL IV. Oral contrast: No DLP: 276.67 mGy.cm COMPARISON: 01/20/2018 Lower thorax: Hyperexpanded lung bases. No mass or pulmonary nodule. Heart is normal size. Intrathoracic stomach, long-term stability. Liver/biliary system: Normal size with no intrahepatic dilatation. Gallbladder: Cholelithiasis without acute cholecystitis. No bile duct dilatation. Pancreas: Normal size pancreas and pancreatic duct. No adjacent inflammation. Spleen: Normal size spleen. No mass or infarct. Adrenal glands: RIGHT adrenal mass measures 1.8 x 1.9 cm. Mass has been present since at least 2008 with minimal increase in size. LEFT adrenal gland is normal. Right kidney: Cortical thinning. No obstruction. Numerous cysts. There are a few nonobstructing calcifications. No solid mass or obstruction. Left kidney: Mild cortical thinning. Numerous cysts. Cortical calcification measures 2.0 x 1.9 cm and has been present for multiple years without significant change. No associated solid mass. Aorta: Mild atherosclerosis with no aneurysm. Lymphadenopathy: None. Free fluid: None. GI tract: No small bowel obstruction. Mild colonic tortuosity and constipation. Normal appendix. Diverticular disease without diverticulitis. Abdominal wall: Fat-containing umbilical hernia. Pelvis: Well-distended urinary bladder. Calcific density in the posterior RIGHT lateral urinary bladder measures 6.6 mm. This was not present on the prior study but may have been obscured by contrast excreted from the kidneys already in the bladder. Prostate gland is markedly enlarged and heterogeneous encroaching into the bladder. Patent LEFT inguinal canal containing fat. Bones: Increase in the lumbar lordosis. L4 anterolisthesis by [address]/CT abdomen pelvis w con* [id number] IMPRESSION: 1. No left-sided hydronephrosis. LEFT renal cysts and long-term stability carmen ical calcification. 2. LEFT ureter is not dilated. No perinephric stranding. 3. No RIGHT renal obstruction. RIGHT renal cyst. 4. Cholelithiasis without acute cholecystitis. 5. 6.6 mm calcification in the RIGHT lateral urinary bladder. May be from a re cently passed ureteral stone. 6. Markedly enlarged heterogeneous prostate gland. Prostate enlargement may be resulting in difficulty urinating. 7. Fat-containing umbilical and LEFT inguinal hernias. 8. Intrathoracic stomach. 9. 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
[2025-01-16] MEDS: iohexol 350 mg/mL 500 mL Btl (per mL) IV (11:00)
== END 2025-01-16 10:19 | disposition home or self-care (01) ==
LOC: RAD 10:21
PROVIDERS: PCP Nurse Practitioner; Visit Provider Nurse Practitioner
DX: N28.1 Cyst of kidney, acquired (principal); K80.20 Calculus of gallbladder without cholecystitis without obstruction; N32.89 Other specified disorders of bladder; N40.0 Benign prostatic hyperplasia without lower urinary tract symptoms; K40.90 Unilateral inguinal hernia, without obstruction or gangrene, not specified as recurrent; K42.9 Umbilical hernia without obstruction or gangrene; E27.9 Disorder of adrenal gland, unspecified
CPT/HCPCS: 74177